=== PATIENT | male | born 1985 | race Hispanic/Latino ===

== ENCOUNTER 2023-12-06 18:03 | Emergency (ER) | payer SELFPAY ==
[2023-12-06 18:12] VITALS: BP 173/107; PULSE 73; RESP 16; TEMP 36.7; O2SAT 98; BMI 31.1
--- NOTE | 2023-12-06 18:21 | DI.RAD.S_ITS ---
PROCEDURE: XR SHOULDER LT MIN 2V INDICATIONS: left shoulder pain after pushing self up TECHNIQUE: 3 views of the shoulder were acquired. COMPARISON: None. FINDINGS: Bones: Mild degenerative changes. No acute displaced fracture or dislocation. Soft tissues: Suspected left mid lung granuloma. IMPRESSION: Mild degenerative changes. No acute radiographic abnormality. If there is high concern for further derangement, consider MRI evaluation. Dictated by: Sancho Jin M.D. on 12/06/2023 at 18:51 Approved by: Sancho Jin M.D. on 12/06/2023 at 18:52
--- NOTE | 2023-12-06 18:50 | ED_ITS ---
HPI - General Adult General Chief complaint: Extremity Injury, Upper Stated complaint: poss lf arm injury Time Seen by Provider: 12/06/23 18:31 Source: patient Mode of arrival: Ambulatory History of Present Illness HPI narrative: Patient is a 38-year-old male here for evaluation of a left shoulder/upper arm injury. Patient states he was trying to pull himself up on a wall that was approximately chest high. He states he jumped up and as he was trying to push himself up he had a sudden pain to the front of his left arm and felt/heard a pop. He has had pain in this area since then. No interventions prior to arrival. No prior injury to this area. No other injuries to the event. Related Data Previous Rx's Medication Instructions Recorded hydrocodone 5 mg-acetaminophen 325 1 tab PO Q4-6H PRN pain #20 tabs 12/06/23 mg tablet Allergies Allergy/AdvReac Type Severity Reaction Status Date / Time No Known Drug Allergies Allergy Verified 12/06/23 18:17 Review of Systems Musculoskeletal Musculoskeletal: Reports system reviewed and no additional complaints, except as documented Integumentary/Breasts Skin/Breast: Reports system reviewed and no additional complaints, except as documented Patient History Social History Smoking Status: Current some day smoker Smoking Status: Current some day smoker tobacco type: cigarettes alcohol intake frequency: a few times a week Substance Use Type: does not use Exam Initial Vital Signs Initial Vital Signs: Vital Signs Temperature 98.1 F 12/06/23 18:12 Pulse Rate 73 12/06/23 18:12 Respiratory Rate 16 12/06/23 18:12 Blood Pressure 173/107 H 12/06/23 18:12 Pulse Oximetry 98 12/06/23 18:12 Oxygen Delivery Method Room Air 12/06/23 18:12 Chest Chest: No crepitus and No tenderness Cardio Pulses: radial pulses present on the left Skin General: no rashes or lesions noted Neuro Sensory Exam: no sensory deficits noted Extrem Other: no discomfort around the elbow. The distal end of the biceps tendon appears to be intact. Patient is unable to flex at the elbow. There was no specific deficit felt in the biceps muscle but he does have quite a bit of discomfort at the proximal head of the biceps tendon. He was unable to do a Neer test. he can abduct his left shoulder. Has no neck discomfort. No chest wall discomfort. Course Orders Ordered: ED Orders 12/06/23 18:21 XR shoulder LT min 2V Stat 12/06/23 18:59 XR humerus LT 2V Stat Discontinued Medications Hydrocodone Bitart/Acetaminophen (Hydrocodone/Acet 5/325 Prepack) 1 bottle MISC DIRECTED ONE Stop: 12/06/23 18:51 Last Admin: 12/06/23 18:57 Dose: 1 bottle Documented By: Hydrocodone Bitart/Acetaminophen (Hydrocodone/Acet 5/325 Tablet) 1 tab PO NOW ONE Stop: 12/06/23 18:51 Last Admin: 12/06/23 18:56 Dose: 1 tab Documented By: Vital Signs Vital signs: Vital Signs - 8 hr 12/06/23 18:12 12/06/23 20:03 Temperature 98.1 F 98.6 F Pulse Rate 73 72 Respiratory Rate 16 16 Blood Pressure 173/107 H 170/95 H Pulse Oximetry 98 99 Oxygen Delivery Method Room Air Room Air Medical Decision Making Imaging Data Extremity x-ray #1: Radiologist's Impression: PROCEDURE: XR SHOULDER LT MIN 2V INDICATIONS: left shoulder pain after pushing self up TECHNIQUE: 3 views of the shoulder were acquired. COMPARISON: None. FINDINGS: Bones: Mild degenerative changes. No acute displaced fracture or dislocation. Soft tissues: Suspected left mid lung granuloma. IMPRESSION: Mild degenerative changes. No acute radiographic abnormality. If there is high concern for further derangement, consider MRI evaluation. Extremity x-ray #2: Radiologist's Impression: PROCEDURE: XR HUMERUS LT 2V INDICATIONS: Possible biceps tendon injury TECHNIQUE: 2 views of the humerus were acquired. COMPARISON: None. FINDINGS: Bones: No acute displaced fracture or dislocation. Soft tissues: No suspicious calcifications. IMPRESSION: No acute osseous abnormality. Given provided history, consider MRI for confirmation MDM Narrative Medical decision making narrative: Patient is neurovascularly intact. X-ray shows no bony abnormality. I do have high suspicion that he has at least partially torn his left biceps muscle or potentially the biceps tendon although it is very difficult to obtain a good exam based on his discomfort that he has with any sort of palpation or movement. He was placed in a sling for his comfort. Will discharge home with instruction s to follow-up with an orthopedic surgeon. He was not from the local area. He was given a copy of his imaging studies on a CD. Will send home with pain medication. He was given return precautions. He expressed understanding and agreement. Discharge Plan Departure Patient Disposition: Home Clinical Impression: Injury of tendon of biceps Instructions: How to Use a Sling, How To Perform RICE (Rest, Ice, Compress, Elevate) Activity Restrictions/Additional Instructions: The sling is for your comfort. You can take it off to change your clothes and also to shower. I have a high suspicion that you have injured the biceps muscle to your left arm. This is going to require a follow-up with orthopedic surgery. You can contact your primary doctor and your insurance company when you return home or you can contact the Orthopedic Department at the number provided below for a follow-up. Return to the emergency department for new symptoms. Prescriptions: New hydrocodone-acetaminophen 5-325 mg tablet 1 tab PO Q4-6H PRN (Reason: pain) Qty: 20 0RF Referrals: Rosales Pugh MD [Physician] - Stand Alone Forms: Patient Portal/API
[2023-12-06] MEDS: HYDROCODONE/ACET 5/325 TABLET 1 TAB PO (18:56)
[2023-12-06] MEDS: HYDROCODONE/ACET 5/325 PREPACK 1 BOTTLE MISC (18:57)
--- NOTE | 2023-12-06 18:59 | DI.RAD.S_ITS ---
PROCEDURE: XR HUMERUS LT 2V INDICATIONS: Possible biceps tendon injury TECHNIQUE: 2 views of the humerus were acquired. COMPARISON: None. FINDINGS: Bones: No acute displaced fracture or dislocation. Soft tissues: No suspicious calcifications. IMPRESSION: No acute osseous abnormality. Given provided history, consider MRI for confirmation Dictated by: Sancho Jin M.D. on 12/06/2023 at 19:29 Approved by: Sancho Jin M.D. on 12/06/2023 at 19:29
--- NOTE | 2023-12-06 19:01 | PC.NURSE ---
Pt with worsening swelling noted to left upper arm, near tricep area. No pain with palpation, compartments soft. Provider made aware. Humerus xray ordered.
[2023-12-06 20:03] VITALS: BP 170/95; PULSE 72; RESP 16; TEMP 37; O2SAT 99
== END 2023-12-06 20:04 | disposition home or self-care (01) ==
PROVIDERS: Emergency Provider Emergency Medicine
DX: S46.202A Unspecified injury of muscle, fascia and tendon of other parts of biceps, left arm, initial encounter (principal); X50.9XXA Other and unspecified overexertion or strenuous movements or postures, initial encounter
CPT/HCPCS: 73030; 73060; 99283